=== PATIENT | female | born 1960 | race Caucasian/White ===

== ENCOUNTER 2025-03-29 15:52 | Outpatient (CLI) | payer MEDICARE ==
[~2025-03-29] VITALS: Ht 156.2 cm; Wt 72.6 kg
[~2025-03-29 15:52] MED LIST: MIDAZolam 1 MG/ML 5ML VIAL ONE; fentaNYL/PF 50MCG/1 ML 2ML syringe ONE
[2025-03-29] MEDS: albuterol 2.5 MG/3 ML nebule NEB ONE (16:34)
[2025-03-29 16:35] VITALS: PULSE 82; RESP 16; O2SAT 95
[2025-03-29 16:48] VITALS: PULSE 84; RESP 18
--- NOTE | 2025-03-30 15:16 | PROCEDURE NOTE - Respiratory ---
Procedure Note-Respiratory Providers to CC Copies To 1: KHLOE DICKEY Procedure Name: This is a spirometry study dated March 29, 2025. The spirometry study was performed both before and after inhaled bronchodilator. Spirometry measurements: Both the forced vital capacity and the FEV1 measurements are in the lower range of normal. The FEV1 ratio is normal. All of the flow rate measurements are normal. After inhaled bronchodilator was administered, some of the flow rates show minimal improvement. Conclusion: Normal spirometry study. Even though this patient has normal lung function at this time, it is suspected that this patient is experiencing the onset of smoker's bronchitis. This patient has a persistent productive cough probably related to smoking. It is strongly recommended that the patient abstain from cigarette smoking. We have no previous studies for comparison. Continued use of albuterol inhaler is recommended. BJ WOLFE MD Mar 30, 2025 15:16
== END 2025-03-29 23:59 | disposition home or self-care (01) ==
LOC: RT 15:52
PROVIDERS: ATTEND Physician Assistant
DX: R05.3 Chronic cough (principal)
CPT/HCPCS: 94060; 94760; J2250; J3010